=== PATIENT | female | born 1995 | race Caucasian/White ===

== ENCOUNTER 2018-07-24 08:50 | Emergency (ER) | payer BC ==
--- NOTE | 2018-07-24 09:20 | EDM.PDOC ---
ED HPI GENERAL MEDICAL PROBLEM - General Chief Complaint: Abdominal Pain Stated Complaint: CLINIC SENT POSSIBLE APPENDICITIS Time Seen by Provider: 07/24/18 09:10 - History of Present Illness INITIAL COMMENTS - FREE TEXT/NARRATIVE: 23-year-old female presents emergency room with right flank and lower quadrant pain. Pain became more severe with associated nausea and vomiting around 3:00 this morning. However she's had milder pain on and off for the last couple of weeks. She has a history of a kidney stone in the past. This seems a little different. She developed some vomiting this morning about the time the pain got worse. She denies fevers or chills. She has no burning or frequency with urination. She denies any possibility of being however is not using anything for control. Patient was seen this morning at the walk-in clinic and referred here with a possible appendicitis. Treatments HEALTH SPECIALIST: Reports: NSAIDS, Other (see below) Other Treatments HEALTH SPECIALIST: pepto Right Lower Flank Pain Score (Numeric/FACES): 8 - Related Data Allergies Allergy/AdvReac Type Severity Reaction Status Date / Time No Known Allergies Allergy Verified 07/24/18 08:56 Home Meds: Home Meds Tamsulosin [Tamsulosin 24 Hr] 0.4 mg PO Q24H #7 cap.er 07/24/18 [Rx] Past Medical History - Past Health History Medical/Surgical History: Denies Medical/Surgical History Social & Family History - Family History Endocrine/Metabolic: Reports: Diabetes, Type I, Diabetes, type II - Caffeine Use Caffeine Use: Reports: None ED ROS GENERAL - Review of Systems Review Of Systems: See Below Constitutional: Denies: Fever, Chills HEENT: Reports: No Symptoms Respiratory: Reports: No Symptoms Cardiovascular: Reports: No Symptoms GI/Abdominal: Reports: Abdominal Pain, Nausea, Vomiting. Denies: Constipation, Diarrhea : Reports: No Symptoms Musculoskeletal: Reports: No Symptoms Skin: Reports: No Symptoms Neurological: Reports: No Symptoms Psychiatric: Reports: No Symptoms ED EXAM, GI/ABD - Physical Exam Exam: See Below Exam Limited By: No Limitations General Appearance: Alert, No Apparent Distress Head: Atraumatic, Normocephalic Neck: Normal Inspection, Supple, Non-Tender, Full Range of Motion. No: Lymphadenopathy (L), Lymphadenopathy (R) Respiratory/Chest: No Respiratory Distress, Lungs Clear, Normal Breath Sounds Cardiovascular: Regular Rate, Rhythm, No Edema, No Murmur GI/Abdominal Exam: Normal Bowel Sounds, Soft, Other (Abdominal exam complicated by morbid obesity she has some generalized right sided discomfort this seems to start in the flank but is worse in the right lower quadrant it is worse with palpation no rigidity rebound exam is hard to interpret with her body habitus but she states she did get a sharp pain.) Course - Vital Signs Last Recorded V/S: Last Vital Signs Temp 36.4 C 07/24/18 08:57 Pulse 68 07/24/18 08:57 Resp 18 07/24/18 08:57 BP 174/88 H 07/24/18 08:57 Pulse Ox 95 07/24/18 08:57 - Orders/Labs/Meds Orders: Active Orders 24 hr Category Date Time Status Sodium Chloride 0.9% [Normal Saline] 1,000 ml Med 07/24/18 09:30 Active IV ASDIRECTED Tamsulosin [Flomax] Med 07/24/18 15:59 Once 0.4 mg PO ONETIME ONE Medication Orders Sodium Chloride (Normal Saline) 1,000 mls @ 150 mls/hr IV ASDIRECTED ALONA Last Admin: 07/24/18 14:37 Dose: 150 mls/hr Labs: Laboratory Tests 07/24/18 07/24/18 07/24/18 Range/Units 09:40 09:40 11:26 WBC 11.95 H (3.98-10.04) K/mm3 RBC 4.75 (3.98-5.22) M/mm3 Hgb 13.6 (11.2-15.7) gm/L Hct 41.9 (34.1-44.9) % MCV 88.2 (79.4-94.8) fl MCH 28.6 (25.6-32.2) pg MCHC 32.5 (32.2-35.5) g/dl RDW Std Deviation 43.5 (36.4-46.3) fL Plt Count 238 (182-369) K/mm3 MPV 11.0 (9.4-12.3) fl Neutrophils % (Manual) 87 H (40-60) % Band Neutrophils % 0 (0-10) % Lymphocytes % (Manual) 6 L (20-40) % Atypical Lymphs % 0 % Monocytes % (Manual) 7 (2-10) % Eosinophils % (Manual) 0 L (0.7-5.8) % Basophils % (Manual) 0 L (0.1-1.2) Platelet Estimate Adequate RBC Morph Comment Normal Sodium 142 (136-145) mEq/L Potassium 4.3 (3.5-5.1) mEq/L Chloride 108 H (98-107) mEq/L Carbon Dioxide 21 (21-32) mEq/L Anion Gap 17.3 H (5-15) BUN 17 (7-18) mg/dL Creatinine 1.1 H (0.55-1.02) mg/dL Est Cr Clr Drug Dosing 78.67 mL/min Estimated GFR (MDRD) > 60 (>60) mL/min BUN/Creatinine Ratio 15.5 (14-18) Glucose 117 H (74-106) mg/dL Calcium 8.8 (8.5-10.1) mg/dL Total Bilirubin 0.5 (0.2-1.0) mg/dL AST 40 H (15-37) U/L ALT 86 H (14-59) U/L Alkaline Phosphatase 68 (46-116) U/L Total Protein 7.3 (6.4-8.2) g/dl Albumin 3.6 (3.4-5.0) g/dl Globulin 3.7 gm/dL Albumin/Globulin Ratio 1.0 (1-2) Lipase 68 L (73-393) U/L Urine Color Yellow (Yellow) Urine Appearance Slt cloudy H (Clear) Urine pH 6.0 (5.0-8.0) Ur Specific [place] 1.025 (1.005-1.030) Urine Protein 1+ H (Negative) Urine Glucose (UA) Negative (Negative) Urine Ketones Negative (Negative) Urine Occult Blood 3+ H (Negative) Urine Nitrite Negative (Negative) Urine Bilirubin Negative (Negative) Urine Urobilinogen 0.2 (0.2-1.0) Ur Leukocyte Esterase Negative (Negative) Urine RBC 50-75 H (0-5) /hpf Urine WBC Not seen (0-5) /hpf Ur Epithelial Cells 0-5 (0-5) /hpf Urine Bacteria Few (FEW) /hpf Urine Mucus Few (FEW) /hpf Urine HCG, Qual (NEGATIVE) 07/24/18 Range/Units 11:26 WBC (3.98-10.04) K/mm3 RBC (3.98-5.22) M/mm3 Hgb (11.2-15.7) gm/L Hct (34.1-44.9) % MCV (79.4-94.8) fl MCH (25.6-32.2) pg MCHC (32.2-35.5) g/dl RDW Std Deviation (36.4-46.3) fL Plt Count (182-369) K/mm3 MPV (9.4-12.3) fl Neutrophils % (Manual) (40-60) % Band Neutrophils % (0-10) % Lymphocytes % (Manual) (20-40) % Atypical Lymphs % % Monocytes % (Manual) (2-10) % Eosinophils % (Manual) (0.7-5.8) % Basophils % (Manual) (0.1-1.2) Platelet Estimate RBC Morph Comment Sodium (136-145) mEq/L Potassium (3.5-5.1) mEq/L Chloride (98-107) mEq/L Carbon Dioxide (21-32) mEq/L Anion Gap (5-15) BUN (7-18) mg/dL Creatinine (0.55-1.02) mg/dL Est Cr Clr Drug Dosing mL/min Estimated GFR (MDRD) (>60) mL/min BUN/Creatinine Ratio (14-18) Glucose (74-106) mg/dL Calcium (8.5-10.1) mg/dL Total Bilirubin (0.2-1.0) mg/dL AST (15-37) U/L ALT (14-59) U/L Alkaline Phosphatase (46-116) U/L Total Protein (6.4-8.2) g/dl Albumin (3.4-5.0) g/dl Globulin gm/dL Albumin/Globulin Ratio (1-2) Lipase (73-393) U/L Urine Color (Yellow) Urine Appearance (Clear) Urine pH (5.0-8.0) Ur Specific [place] (1.005-1.030) Urine Protein (Negative) Urine Glucose (UA) (Negative) Urine Ketones (Negative) Urine Occult Blood (Negative) Urine Nitrite (Negative) Urine Bilirubin (Negative) Urine Urobilinogen (0.2-1.0) Ur Leukocyte Esterase (Negative) Urine RBC (0-5) /hpf Urine WBC (0-5) /hpf Ur Epithelial Cells (0-5) /hpf Urine Bacteria (FEW) /hpf Urine Mucus (FEW) /hpf Urine HCG, Qual Negative (NEGATIVE) Meds: Medications Generic Name Dose Route Start Last Admin Trade Name Jasbir PRN Reason Stop Dose Admin Sodium Chloride 1,000 mls @ 150 mls/hr 07/24/18 09:30 07/24/18 14:37 Normal Saline IV 150 mls/hr ASDIRECTED ALONA Administration Discontinued Medications Generic Name Dose Route Start Last Admin Trade Name Jasbir PRN Reason Stop Dose Admin Diatrizoate Meglum/Diatrizoate Sod 90 ml 07/24/18 15:13 07/24/18 15:15 Gastrografin 37% PO 07/24/18 15:14 90 ml ONETIME ONE Administration Hydromorphone HCl 0.5 mg 07/24/18 09:24 07/24/18 09:46 Dilaudid IVPUSH 07/24/18 09:25 Not Given ONETIME ONE Hydromorphone HCl 1 mg 07/24/18 09:35 07/24/18 09:44 Dilaudid IVPUSH 07/24/18 09:36 0.5 mg ONETIME ONE Administration Hydromorphone HCl 0.5 mg 07/24/18 12:43 07/24/18 12:53 Dilaudid IVPUSH 07/24/18 12:44 0.5 mg ONETIME ONE Administration Hydromorphone HCl 0.5 mg 07/24/18 14:43 07/24/18 15:33 Dilaudid IVPUSH 07/24/18 14:44 0.5 mg ONETIME ONE Administration Sodium Chloride 500 mls @ 999 mls/hr 07/24/18 09:24 07/24/18 09:42 Normal Saline IV 07/24/18 09:54 999 mls/hr .BOLUS ONE Administration Iopamidol 100 ml 07/24/18 14:11 07/24/18 15:15 Isovue-300 (61%) IVPUSH 07/24/18 14:12 100 ml ONETIME ONE Administration Ketorolac Tromethamine 15 mg 07/24/18 15:58 Toradol IVPUSH 07/24/18 15:59 ONETIME ONE Ondansetron HCl 4 mg 07/24/18 09:52 07/24/18 09:55 Zofran IVPUSH 07/24/18 09:53 4 mg ONETIME ONE Administration Ondansetron HCl 4 mg 07/24/18 14:45 07/24/18 15:33 Zofran IVPUSH 07/24/18 14:46 4 mg ONETIME ONE Administration Sodium Chloride 10 ml 07/24/18 14:11 07/24/18 15:15 Saline Flush FLUSH 07/24/18 14:12 10 ml ONETIME ONE Administration - Re-Assessments/Exams Free Text/Narrative Re-Assessment/Exam: 07/24/18 09:33 We'll check labs start an IV. Based on exam I cannot exclude an appendicitis with any reasonable accuracy. We'll check labs anticipate abdominal pelvic CT with IV contrast, no oral as high in the differential is a kidney stone. Patient states she needs for pain will give her half milligram of Dilaudid and some Zofran as well as well as IV fluids anticipating CT. 07/24/18 14:45 Patient was given oral contrast for the CT delay in getting the study done results pending. 07/24/18 15:[address] report back she has a 4.4 mm right ureter near the UPJ causing obstruction of the system. We'll start Flomax give a dose of Toradol gently 15 mg her creatinine was 1.1 she did get some fluid with her contrast. Departure - Departure Time of Disposition: 16:01 Disposition: Home, Self-Care 01 Clinical Impression: Right kidney stone - Discharge Information Prescriptions: Tamsulosin [Tamsulosin 24 Hr] 0.4 mg PO Q24H #7 cap.er Referrals: Emily Cabezas, [employer] [Primary Care Provider] - Forms: ED Department Discharge Additional Instructions: Return the emergency room with any questions problems worsening symptoms. Return immediately if you develop a fever. Use the pain medication as we discussed with the pain shot you get now he probably will not need anything 10 PM or possibly later. After this use the [place] from the machine you got out of in the waiting room #20 one or 2 every 6 hours as needed for pain. Allow 12 hours after using this medication before driving or returning to work. Take the Flomax as directed until all gone Strain your urine until the stone was caught. Follow-up in the clinic on Wednesday or Wednesday. Discussed follow-up with urology. - My Orders Last 24 Hours: My Active Orders 07/24/18 09:30 Sodium Chloride 0.9% [Normal Saline] 1,000 ml IV ASDIRECTED 07/24/18 15:59 Tamsulosin [Flomax] 0.4 mg PO ONETIME ONE - Assessment/Plan Last 24 Hours: My Active Orders 07/24/18 09:30 Sodium Chloride 0.9% [Normal Saline] 1,000 ml IV ASDIRECTED 07/24/18 15:59 Tamsulosin [Flomax] 0.4 mg PO ONETIME ONE
[2018-07-24] MEDS ORDERED: Sodium Chloride 0.9% 500 ML IV ONE (09:24)
[2018-07-24] MEDS ORDERED: HYDROmorphone 0.5 MG/0.5 ML Syringe IVPUSH ONE (09:24)
[2018-07-24] MEDS ORDERED: Sodium Chloride 0.9% 1,000 ML IV SCH (09:30)
[2018-07-24] MEDS ORDERED: HYDROmorphone 1 MG/ML Syringe IVPUSH ONE ×3 (09:35→14:43)
[2018-07-24] MEDS ORDERED: Ondansetron 4 MG/2 ML SDV IVPUSH ONE ×2 (09:52→14:45)
[2018-07-24] MEDS ORDERED: Iopamidol 612 MG/ML 100 ML Bottle IVPUSH ONE (14:11)
[2018-07-24] MEDS ORDERED: Sodium Chloride 0.9% 10 ML Syringe FLUSH ONE (14:11)
[2018-07-24] MEDS ORDERED: Diatrizoate Meglumine/Diatrizoate Sodium 37% 120 ML Bottle PO ONE (15:13)
--- NOTE | 2018-07-24 15:41 | CT ---
CT abdomen and pelvis Technique: Multiple axial sections were obtained from above the dome of the diaphragm inferiorly through the pubic symphysis. Intravenous and oral contrast was utilized. Comparison: Prior CT abdomen and pelvis exam performed as a ureteral stone protocol dated 08/05/16. Findings: Small portion of the visualized lung bases shows minimal atelectasis. Liver shows fatty infiltration without focal abnormality. Gallbladder shows no calcified gallstones. Spleen appears within normal limits. Small obstructing stone is noted within the right UPJ measuring 4.4 mm causing mild dilatation of the right kidney collecting system. No other abnormal calcifications are seen along the course of the ureters. No abnormal calcifications are seen within the kidneys. Adrenal glands show no nodule. Pancreas is within normal limits. Aorta shows no aneurysm. No retroperitoneal adenopathy or mesenteric abnormalities are seen. Appendix is seen and appears normal in size. Cyst is noted within the left ovary measuring 4.1 cm. Similar cyst is noted on prior exam and uncertain if this is a chronic cyst or represents reappearance of a new but similar cyst. Overall size is without change. No additional pelvic abnormality is seen. Bone window settings were reviewed which appear within normal limits for the patient's age. Impression: 1. 4.4 mm obstructing stone located at the UPJ on the right side causing dilatation of the right kidney collecting system. 2. 4.1 cm cyst within the left ovary which appears similar to previous exam. Further discussion as noted above. 3. Other incidental findings as noted above. Diagnostic code #3
[2018-07-24] MEDS ORDERED: Ketorolac 15 MG/ML SDV IVPUSH ONE (15:58)
[2018-07-24] MEDS ORDERED: Tamsulosin 0.4 MG Cap.ER PO ONE (15:59)
[2018-07-24 17:03] VITALS: BP 149/84
== END 2018-07-24 16:28 | disposition home or self-care (01) ==
LOC: JD.ED 08:50
DX: N20.2 Calculus of kidney with calculus of ureter (principal)
CPT/HCPCS: 36415; 74177; 80053; 81001; 81025; 83690; 85007; 85027; 96361; 96374; 96375; 96376; 99284; A9270; J1170; J1885; J2405; J7040; Q9963; Q9967

== ENCOUNTER 2018-11-16 19:49 | Emergency (ER) | payer BC, OTHER ==
[2018-11-16 20:11] VITALS: BP 154/90
[2018-11-16] MEDS ORDERED: Ondansetron 4 MG/2 ML SDV IVPUSH ONE (21:04)
[2018-11-16] MEDS ORDERED: Sodium Chloride 0.9% 10 ML Syringe FLUSH PRN (21:04)
[2018-11-16] MEDS ORDERED: HYDROmorphone 1 MG/ML Syringe IVPUSH ONE ×2 (21:05→22:00)
[2018-11-16] MEDS ORDERED: Sodium Chloride 0.9% 1,000 ML IV SCH (21:15)
--- NOTE | 2018-11-16 21:39 | EDM.PDOC ---
ED HPI GENERAL MEDICAL PROBLEM - General Chief Complaint: Flank Pain Stated Complaint: POSS KIDNEY STONES Time Seen by Provider: 11/16/18 20:47 Source of Information: Reports: Patient History Limitations: Reports: No Limitations - History of Present Illness INITIAL COMMENTS - FREE TEXT/NARRATIVE: The patient presents with right flank pain. She was seen at the walk in clinic earlier today and she was diagnosed with a 6mm kidney stone. She also had a UTI and yeast infection. She was put on an antibiotic, flomax, something for nausea and something for pain. She vomited that up. She is here for help with the pain and nausea. She has no fever, chills, cough, chest pain or shortness of breath. Onset: Sudden Duration: Hour(s): Location: Reports: Abdomen, Back Quality: Reports: Sharp Severity: Severe Improves with: Reports: None Worsens with: Reports: None Associated Symptoms: Reports: Nausea/Vomiting. Denies: Chest Pain, Cough, Fever /Chills, Headaches, Shortness of Breath - Related Data Allergies Allergy/AdvReac Type Severity Reaction Status Date / Time No Known Allergies Allergy Verified 07/24/18 08:56 Home Meds: Home Meds Tamsulosin [Tamsulosin 24 Hr] 0.4 mg PO Q24H #7 cap.er 07/24/18 [Rx] Fluconazole [Diflucan] 150 mg PO ONETIME 11/16/18 [History] Hydrocodone/Acetaminophen [[place] 10-325 Tablet] 1 each PO Q4HR 11/16/18 [History ] Ondansetron [Zofran] 4 mg PO Q8H 11/16/18 [History] metroNIDAZOLE [Flagyl] 500 mg PO BID 11/16/18 [History] Past Medical History - Past Health History Medical/Surgical History: Denies Medical/Surgical History Genitourinary History: Reports: Renal Calculus Social & Family History - Family History Endocrine/Metabolic: Reports: Diabetes, Type I, Diabetes, type II - Tobacco Use Smoking Status *Q: Never Smoker - Caffeine Use Caffeine Use: Reports: None - Recreational Drug Use Recreational Drug Use: No ED ROS GENERAL - Review of Systems Review Of Systems: See Below Constitutional: Reports: No Symptoms HEENT: Reports: No Symptoms Respiratory: Reports: No Symptoms Cardiovascular: Reports: No Symptoms Endocrine: Reports: No Symptoms GI/Abdominal: Reports: Abdominal Pain, Nausea, Vomiting : Reports: Flank Pain Musculoskeletal: Reports: Back Pain Skin: Reports: No Symptoms ED EXAM, RENAL/ - Physical Exam Exam: See Below Exam Limited By: No Limitations General Appearance: Alert, No Apparent Distress Ears: Normal External Exam Nose: Normal Inspection Head: Atraumatic, Normocephalic Neck: Normal Inspection Respiratory/Chest: No Respiratory Distress, Lungs Clear, Normal Breath Sounds Cardiovascular: Regular Rate, Rhythm, No Edema, No Murmur GI/Abdominal: Soft, No Organomegaly, No Mass, Tender (Moderate right sided tenderness) Back Exam: CVA Tenderness (R) Extremities: Normal Inspection Course - Vital Signs Last Recorded V/S: Last Vital Signs Temp 97.5 F 11/16/18 20:08 Pulse 71 11/16/18 20:08 Resp 16 11/16/18 20:08 BP 154/90 H 11/16/18 20:08 Pulse Ox 95 11/16/18 20:08 - Orders/Labs/Meds Orders: Active Orders 24 hr Category Date Time Status Peripheral IV Care [RC] . DIRECTED Care 11/16/18 21:04 Active Sodium Chloride 0.9% [Normal Saline] 1,000 ml Med 11/16/18 21:15 Active IV ASDIRECTED Sodium Chloride 0.9% [Saline Flush] Med 11/16/18 21:04 Active 10 ml FLUSH ASDIRECTED PRN ED Antiemetic Medication Reflex [OM.PC] Stat Oth 11/16/18 21:04 Ordered Peripheral IV Insertion Adult [OM.PC] Stat Oth 11/16/18 21:04 Ordered Medication Orders Sodium Chloride (Normal Saline) 1,000 mls @ 125 mls/hr IV ASDIRECTED ALONA Last Admin: 11/16/18 21:25 Dose: 125 mls/hr Sodium Chloride (Saline Flush) 10 ml FLUSH ASDIRECTED PRN PRN Reason: Keep Vein Open Last Admin: 11/16/18 21:27 Dose: 10 ml Meds: Medications Generic Name Dose Route Start Last Admin Trade Name Freq PRN Reason Stop Dose Admin Sodium Chloride 1,000 mls @ 125 mls/hr 11/16/18 21:15 11/16/18 21:25 Normal Saline IV 125 mls/hr ASDIRECTED ALONA Administration Sodium Chloride 10 ml 11/16/18 21:04 11/16/18 21:27 Saline Flush FLUSH 10 ml ASDIRECTED PRN Administration Keep Vein Open Discontinued Medications Generic Name Dose Route Start Last Admin Trade Name Jasbir PRN Reason Stop Dose Admin Hydromorphone HCl 1 mg 11/16/18 21:05 11/16/18 21:28 Dilaudid IVPUSH 11/16/18 21:06 1 mg ONETIME ONE Administration Hydromorphone HCl 1 mg 11/16/18 22:00 11/16/18 22:46 Dilaudid IVPUSH 11/16/18 22:01 1 mg ONETIME ONE Administration Hydromorphone HCl 0.5 mg 11/16/18 23:00 Dilaudid IVPUSH 11/16/18 23:01 ONETIME ONE Metoclopramide HCl 10 mg 11/16/18 23:00 Reglan IVPUSH 11/16/18 23:01 ONETIME ONE Ondansetron HCl 4 mg 11/16/18 21:04 11/16/18 21:26 Zofran IVPUSH 11/16/18 21:05 4 mg ONETIME ONE Administration - Re-Assessments/Exams Free Text/Narrative Re-Assessment/Exam: 11/16/18 21:38 I ordered an IV NS at 125mL/hr, zofran 4mg IV, and dilaudid 1mg IV. 11/16/18 23:05 She still has pain so I ordered more dilaudid 1mg IV. Later I checked on her and she still had nausea and pain so I ordered dilaudid 0.5mg IV and reglan 10mg IV. I will discharge her home. Departure - Departure Time of Disposition: 23:10 Disposition: Home, Self-Care 01 Condition: Good Clinical Impression: UTI, Urinary tract infectious disease, Kidney stone, Ureteral calculus, right, Ureteric colic - Discharge Information *PRESCRIPTION DRUG MONITORING PROGRAM REVIEWED*: Not Applicable *COPY OF PRESCRIPTION DRUG MONITORING REPORT IN PATIENT JUAN: Not Applicable Referrals: Emma Berman PA-C [Primary Care Provider] - 1 Week Forms: ED Department Discharge Additional Instructions: Take your medication as prescribed. Drink plenty of fluids. Please return if you are worse. - My Orders Last 24 Hours: My Active Orders 11/16/18 21:04 Peripheral IV Care [RC] . DIRECTED Sodium Chloride 0.9% [Saline Flush] 10 ml FLUSH ASDIRECTED PRN ED Antiemetic Medication Reflex [OM.PC] Stat Peripheral IV Insertion Adult [OM.PC] Stat 11/16/18 21:15 Sodium Chloride 0.9% [Normal Saline] 1,000 ml IV ASDIRECTED - Assessment/Plan Last 24 Hours: My Active Orders 11/16/18 21:04 Peripheral IV Care [RC] . DIRECTED Sodium Chloride 0.9% [Saline Flush] 10 ml FLUSH ASDIRECTED PRN ED Antiemetic Medication Reflex [OM.PC] Stat Peripheral IV Insertion Adult [OM.PC] Stat 11/16/18 21:15 Sodium Chloride 0.9% [Normal Saline] 1,000 ml IV ASDIRECTED
[2018-11-16] MEDS ORDERED: HYDROmorphone 0.5 MG/0.5 ML Syringe IVPUSH ONE (23:00)
[2018-11-16] MEDS ORDERED: Metoclopramide 10 MG/2 ML SDV IVPUSH ONE (23:00)
== END 2018-11-16 23:52 | disposition home or self-care (01) ==
LOC: JD.ED 19:49
DX: N39.0 Urinary tract infection, site not specified (principal); N20.2 Calculus of kidney with calculus of ureter; Z79.899 Other long term (current) drug therapy
CPT/HCPCS: 96361; 96374; 96375; 96376; 99283; J1170; J2405; J2765; J7040; 99284